=== PATIENT | male | born 1990 | race American Indian/Alaskan Native ===

== ENCOUNTER 2019-09-29 16:02 | Emergency (ER) | payer SELFPAY ==
[2019-09-29 16:13] VITALS: BP 166/100
[2019-09-29] MEDS ORDERED: IBUPROFEN 600 MG TAB PO ONE (18:37)
--- NOTE | 2019-09-29 18:40 | Emergency Department Report ---
- General Chief complaint: Skin/Abscess/Foreign Body Stated complaint: RT LEG SWOLLEN Time Seen by Provider: 09/29/19 18:27 Source: patient Mode of arrival: Ambulatory Limitations: No Limitations - History of Present Illness Initial comments: 29-year-old -[place] male presents to the emergency room in no acute distress and nontoxic in appearance for concern for 8 insect bite to his right hip since Monday. Patient reports that the swelling redness and pain that shoots down his leg. Patient reports he is taken nothing for pain. Patient denies any known drug allergies currently takes no medications but does have a history of hypertension. MD complaint: abscess/boil Onset/Timin -: days(s) Tetanus Up to Date: no Location: RLE (Hip) Severity scale (0 -10): 6 Quality: aching, sharp Consistency: intermittent Worsens with: palpation, movement Context: none Associated symptoms: denies other symptoms Treatments Prior to Arrival: none - Related Data Previous Rx's Medication Instructions Recorded Last Taken Type Clindamycin [Clindamycin CAP] 300 mg PO Q8H #21 cap 09/29/19 Unknown Rx Allergies Allergy/AdvReac Type Severity Reaction Status Date / Time No Known Allergies Allergy Unverified 09/29/19 18:37 Abscess Boil HPI - HPI Chief Complaint: Skin/Abscess/Foreign Body Stated Complaint: RT LEG SWOLLEN Time Seen by Provider: 09/29/19 18:27 Home Medications: Previous Rx's Medication Instructions Recorded Last Taken Type Clindamycin [Clindamycin CAP] 300 mg PO Q8H #21 cap 09/29/19 Unknown Rx Allergies/Adverse Reactions: Allergies Allergy/AdvReac Type Severity Reaction Status Date / Time No Known Allergies Allergy Unverified 09/29/19 18:37 ED Review of Systems ROS: Stated complaint: RT LEG SWOLLEN Other details as noted in HPI Comment: All other systems reviewed and negative ED Past Medical Hx - Past Medical History Previous Medical History?: No - Surgical History Past Surgical History?: No - Social History Smoking Status: Never Smoker Substance Use Type: None - Medications Home Medications: Home Medications Medication Instructions Recorded Confirmed Last Taken Type Clindamycin [Clindamycin CAP] 300 mg PO Q8H #21 cap 09/29/19 Unknown Rx ED Physical Exam - General Limitations: No Limitations General appearance: alert, in no apparent distress - Head Head exam: Present: atraumatic, normocephalic - Eye Eye exam: Present: normal appearance - ENT ENT exam: Present: normal exam, mucous membranes moist - Neck Neck exam: Present: normal inspection, full ROM - Neurological Exam Neurological exam: Present: alert, oriented X3, normal gait - Psychiatric Psychiatric exam: Present: normal affect, normal mood - Expanded Skin Exam Expanded Type of lesion: Present: bite/sting Distribution of rash: RLE Description of rash: Present: tenderness, erythematous, swelling, macular, indurated. Absent: fluctuant ED Course Vital Signs 09/29/19 16:12 Temperature 98.8 F Pulse Rate 108 H Respiratory 14 Rate Blood Pressure 166/100 O2 Sat by Pulse 97 Oximetry ED Medical Decision Making - Medical Decision Making 29-year-old -[place] male presents to the emergency room in no acute distress and nontoxic in appearance for concern for 8 insect bite to his right hip since Monday. Patient reports that the swelling redness and pain that shoots down his leg. Patient reports he is taken nothing for pain. Patient de nies any known drug allergies currently takes no medications but does have a history of hypertension. Patient will be placed on clindamycin 300 mg every 8 hours for 7 days patient to take ibuprofen for pain management. Patient be given ibuprofen 600 mg during his visit. Patient should follow-up with her primary care provider if symptoms persist or gets worse Critical care attestation.: If time is entered above; I have spent that time in minutes in the direct care of this critically ill patient, excluding procedure time. ED Disposition Clinical Impression: Boil Disposition: DC-01 TO HOME OR SELFCARE Is pt being admited?: No Does the pt Need Aspirin: No Condition: Stable Additional Instructions: Please complete antibiotics as prescribed. You can take [id number] ibuprofen or Tylenol for pain management. Follow-up with the primary care provider if your symptoms persist or gets worse. Prescriptions: Clindamycin [Clindamycin CAP] 300 mg PO Q8H #21 cap Referrals: [facility] [place] [Outside] - 3-5 Days Forms: Work/School Release Form(ED)
== END 2019-09-29 18:52 | disposition home or self-care (01) ==
LOC: ED 16:02
DX: S70.261A Insect bite (nonvenomous), right hip, initial encounter (principal); L02.425 Furuncle of right lower limb; W57.XXXA Bitten or stung by nonvenomous insect and other nonvenomous arthropods, initial encounter; Y93.89 Activity, other specified; Y92.89 Other specified places as the place of occurrence of the external cause; Y99.8 Other external cause status
CPT/HCPCS: 99281